=== PATIENT | male | born 1965 | race Caucasian/White ===

== ENCOUNTER 2020-05-07 17:18 | Emergency (ER) | payer OTHER, SELFPAY ==
--- NOTE | ~2020-05-07 | XR_ITS ---
EXAMINATION: XR lumbar spine 2-3V DATE: 05/07/2020 18:06 INDICATION: Back pain TECHNIQUE: Anteroposterior and lateral views of the lumbar spine, and cone-down lateral view of the l umbosacral junction were obtained. COMPARISON: None. FINDINGS: There is no fracture, dislocation, or subluxation. The vertebral body heights and alignment are normal. There is mild loss of intervertebral disc space height at L5-S1. Small degenerative oste ophytes project from the anterior endplates of multiple vertebral bodies. There is mild facet osteoar thritis of the lower lumbar spine. A moderate volume of colonic stool is present. Calcified atherosc lerosis is noted. IMPRESSION: 1. Mild lumbar spondylosis without acute findings. Reviewed, dictated and finalized at location A. S CUTTING MACHINE FEEDER
[2020-05-07 17:33] VITALS: BP 163/79; PULSE 89; RESP 18; TEMP 36.4; O2SAT 100
--- NOTE | 2020-05-07 17:58 | ED.GENADULT ---
HPI - General Adult General Chief complaint: Unspecified Stated complaint: Pain from [place] to Toes Time Seen by Provider: 05/07/20 17:24 Source: patient and family Mode of arrival: ambulatory Limitations: no limitations History of Present Illness HPI narrative: Patient is a 55-year-old male who presents to emergency department for evaluation of pain to the right buttock that radiates down into the foot patient denies injury or trauma patient notes that he has had this pain for 3 weeks has seen primary care for it and has been taking naproxen with minimal to no improvement pain is worse with activity and movement patient did some lifting and moving over the weekend and prolonged sitting. Related Data Home Medications Medication Instructions Recorded Confirmed tczolyniyboj-bux-nlupu acid-vit 1 tablet PO DAILY 04/20/20 K-lycop 400 mcg-20 mcg-370 mcg tablet Allergies Allergy/AdvReac Type Severity Reaction Status Date / Time Penicillins Allergy Mild Unknown Verified 05/07/20 18:03 Review of Systems Review of Systems: All systems reviewed & are unremarkable except as noted in HPI and below PMFSH Past Medical History Medical History Alcoholism Chicken pox Mumps Pneumonia Family History Family History Father Stomach cancer Mother Heart problem Social History Social History Social History: Patient drinks one pot of coffee per day Smoking packs per day: 0.5 Smoking cigarettes per day: 10.0 Smoking status: Current every day smoker Alcohol intake: former Substance use: never Substance use type: does not use Exam Narrative: Exam Narrative: GENERAL: Well-appearing, well-nourished, and in no acute distress. HEAD: Normocephalic, atraumatic. EYES: PERRLA and EOMI. ENT: Nares clear, no rhinorrhea or epistaxis. Mucous membranes moist. CHEST: Clear to auscultation. No respiratory distress. No wheezes rales or rhonchi HEART: Regular rate and rhythm. No murmur heard. EXTREMITIES: Normal range of motion. No edema. Tenderness of the right SI joint no deformities noted. No midline tenderness of the lumbar spine SKIN: Warm, dry, no rash. NEURO: No focal deficits. Alert and oriented x3. Cranial nerves II through XII grossly intact. Normal speech and gait PSYCH: Normal mood and affect. Course Course Emergency Course: Patient evaluated in the emergency department given medications no high risk change in the x-ray will be discharged home for plan follow-up on an outpatient basis patient's medications will be changed due to no improvement with his current medications Vital Signs Vital signs: Vital Signs Temperature 97.5 F L 05/07/20 17:33 Pulse Rate 89 05/07/20 17:33 Respiratory Rate 18 05/07/20 17:33 Blood Pressure 163/79 H 05/07/20 17:33 Pulse Oximetry 100 05/07/20 17:33 Temperature 97.5 F L 05/07/20 17:33 Pulse Rate 89 05/07/20 17:33 Respiratory Rate 18 05/07/20 17:33 Blood Pressure 163/79 H 05/07/20 17:33 Pulse Oximetry 100 05/07/20 17:33 Medical Decision Making MDM Narrative Medical decision making narrative: Patients pain is positional in nature and localized to back without signs of cord compression or cauda equina based on neurological exam, skeletal exam and history. No fever or other significant factors to suggest osteomyelitis or spinal epidural abscess. No symptoms or signs to suggest pain is referred from abdominal or / cardiopulmonary sources. No pulsatile masses noted on exam. Patient ambulates with steady gait and is stable for outpatient management given case findings. Vital Signs Vital Signs: Vital Signs Temperature 97.5 F L 05/07/20 17:33 Pulse Rate 89 05/07/20 17:33 Respiratory Rate 18 05/07/20 17:33 Blood Pressure 163/79 H 05/07/20 17:33 Pulse Oximetry 1
[2020-05-07] MEDS: HYDROcodone/acetaminophen (*CRX) 5-325 MG TABLET 1 TAB PO (18:15)
[2020-05-07] MEDS: diazePAM (*CRX) 5 MG TABLET PO (18:15)
[2020-05-07] MEDS: KETOROLAC (*BKC) 60 MG/2 ML VIAL IM (18:15)
[2020-05-07] MEDS: LIDOCAINE 5% PATCH 1 PATCH TRANSDERM (18:19)
== END 2020-05-07 19:02 | disposition home or self-care (01) ==
PROVIDERS: Emergency Provider Emergency Medicine; PCP Emergency Medicine
DX: M54.41 Lumbago with sciatica, right side (principal)
CPT/HCPCS: 72100; 96372; 99283; A9270; J1885

== ENCOUNTER → 2020-05-14 13:37 | Outpatient (CLI) | payer OTHER, SELFPAY ==
--- NOTE | ~2020-05-14 | MR_ITS ---
EXAMINATION: MR lumbar spine wo/w con EXAM DATE: 05/14/2020 15:56 INDICATION: M54.5 - Low back pain low back pain. Right leg radiculopathy, difficulty walking. TECHNIQUE: Multi-sequential, multiplanar MR images of the lumbar spine were obtained without contrast . Sagittal T1, T2, T2 fat saturation images. Axial T2 weighted images. Axial T1 weighted sequence. Patient was then injected with 15 mL Multihance intravenous contrast and reimaged. Postcontrast axi al and sagittal T1-weighted fat saturation sequences were obtained. FINDINGS: There is mild thoracal dextrocurvature, thoracic levocurvature. There is 2 mm anterolisthes is L4 on L5 with mild to moderate loss of this disc height and at L5-S1. The conus medullaris termina ana at the T12-L1 level and has normal signal intensity and morphology. There is a small right central disc extrusion at L5-S1, with some surrounding enhancement indicating likelihood of acute inflammation, could have recently been extruded. This has migrated inferiorly to the mid S1 level, and is causing mass effect on the traversing right S1 nerve root in the lateral rec ess. Uncertain whether or not the inflammation (which could be treated with anti-inflammatories) and/ or the mass effect could be causing patient's acute symptoms. No other areas of abnormal enhancement. Paraspinal soft tissue is unremarkable. Level by level evaluation: T12-L1: Disc does not extend beyond the endplate margin. Facet arthropathy: None. Neural foraminal stenosis: No stenosis. Central canal stenosis: No stenosis. L1-L2: Disc does not extend beyond the endplate margin. Facet arthropathy: Mild bilateral. Neural foraminal stenosis: No stenosis. Central canal stenosis: No stenosis. L2-L3: There is a mild diffuse disc bulge. Facet arthropathy: Mild. Neural foraminal stenosis: Mild bilateral. Central canal stenosis: Mild. L3-L4: There is a mild diffuse disc bulge. Facet arthropathy: Mild to moderate bilateral. Neural foraminal stenosis: Mild to moderate left, mild right. Central canal stenosis: Mild. L4-L5: There is a moderate diffuse disc bulge. Facet arthropathy: Severe left, moderate right. Neural foraminal stenosis: Moderate to severe left, moderate right. Central canal stenosis: Moderate to severe. L5-S1: There is a mild to moderate diffuse disc bulge, superimposed right central extrusion described above. Facet arthropathy: Mild to moderate right, mild left. Neural foraminal stenosis: Moderate left, mild to moderate right. Central canal stenosis: Mild to moderate (particularly right lateral recess). IMPRESSION: L5-S1 right central extrusion, inferior migration could be acute given surrounding inflam mation. Causing mass effect on traversing S1 nerve root. Other chronic spondylosis as above. Reviewed, dictated and finalized at location A. GE MANAGEMENT ANALYST IMPRESSION: L5-S1 right central extrusion, inferior migration could be acute gi nat surrounding inflammation. Causing mass effect on traversing S1 nerve root. Other chronic spondylosis as above.
[2020-05-14 15:39] LABS: Estimated Glomerular Filt Rate > 60
== END ==
PROVIDERS: PCP Emergency Medicine; Visit Provider Emergency Medicine
DX: M54.30 Sciatica, unspecified side (principal); R29.898 Other symptoms and signs involving the musculoskeletal system; M51.26 Other intervertebral disc displacement, lumbar region
CPT/HCPCS: 72158; A9577

== ENCOUNTER 2022-08-05 08:43 | Day surgery (SDC) | payer OTHER, SELFPAY ==
[2022-07-22 11:54] VITALS: BMI 22.9
[2022-08-05 12:35] VITALS: BMI 22.1
--- NOTE | 2022-08-05 12:35 | SUR.PREOP ---
PT AND SPOUSE NOTIFIED OF DOCTOR DELAY OF APPROX 1 HOUR
--- NOTE | 2022-08-05 12:44 | SUR.PREOP ---
PT AND SPOUSE NOTIFIED OF DOCTOR DELAY OF APPROX 1 HOUR
[2022-08-05 12:50] VITALS: BP 116/79; PULSE 77; RESP 18; TEMP 37.2; O2SAT 100
[2022-08-05] MEDS: LACTATED RINGERS 1,000 ML 150 ML IV CONT (12:50)
--- NOTE | 2022-08-05 14:32 | WPDANESEPPF ---
Anes - Initial Pre Proc Eval Procedure: Operation Date: 08/05/22 13:30 Proposed Procedures p Diagnostic Colonoscopy - Silvano Delcid MD Date/Time: 08/05/22 14:32 Surgeon: Silvano Delcid MD Pre Op Diagnosis: Hematochezia Patient Data Age: 57 Gender: M Height: 1.88 m Weight: 78.3 kg Allergies Allergy/AdvReac Type Severity Reaction Status Date / Time Penicillins Allergy Mild Hives Verified 08/05/22 12:32 Home Medications Medication Instructions Recorded Confirmed Type dktchldnqfcq-pxa-uvsng acid-vit 1 tablet PO DAILY 04/20/20 08/05/22 History K-lycop 400 mcg-20 mcg-370 mcg tablet (One-A-Day Men's 50 Plus) Patient hx anesthesia problems: none Family hx anesthesia problems: none Results Review: All pre-operative results and documents have been reviewed as part of the pre-operative evaluation. [facility] Past Medical History Medical History Alcoholism Chicken pox Hematochezia Mumps Pneumonia Tenesmus (rectal) Tobacco abuse Family History Family History Father Stomach cancer Mother Heart problem Social History Social History Social History: Patient drinks one pot of coffee per day Smoking packs per day: 1 Smoking cigarettes per day: 20.0 Years smoked: 40 Smoking pack-years: 40.00 Smoking status: Current every day smoker Tobacco type: cigarettes Alcohol intake: never Substance use: never Substance use type: does not use Living arrangements: with family Occupation/Education: occupation Spiritual care concerns: No Anes - Eval Final PreProcedure Day of Procedure 08/05/22 14:32 Patient weight: normal Heart: regular rate and rhythm Lungs: decreased breath sounds Airway: Mallampati scale class II Neurological: alert and oriented Last oral intake: >/= 8 hours ASA classification: III Emergent: no Anesthetic plan: proceed Anesthesia type and monitoring: general GIVS and standard monitoring Results Review: All pre-operative results and documents have been reviewed as part of the pre-operative evaluation. Informed Consent: The patient's anesthetic plan and its attendant risks and benefits were discussed with the patient/family/POA. Questions were solicited and answers provided to the satisfaction of the patient/family/POA.
--- NOTE | 2022-08-05 15:08 | PM.HPGS ---
History of Present Illness History of Present Illness Consent: Risks, benefits, and alternatives have been discussed and questions answered. Patient agrees to proceed with procedure. Chief complaint: Hematochezia Narrative: Griffin Gardner is a 57 year old male with blood in stools about 1 month ago, never had colonoscopy only he has done cologuard Review of Systems Constitutional: Constitutional: Denies headache(s) and Denies weakness Eyes: Eyes: Denies blurry vision ENT: Reports Normal hearing present, Denies headache(s) and Denies neck pain Cardiovascular: Cardiovascular: Denies chest pain and Denies dyspnea Respiratory: Respiratory: Denies dyspnea Gastrointestinal: Gastrointestinal: Reports no additional gastrointestinal complaints Genitourinary: Genitourinary: Denies dysuria Musculoskeletal: Musculoskeletal: Denies neck pain Integumentary/Breasts: Skin/Breast: Denies dry skin Neurologic: Reports Normal hearing present, Denies headache(s) and Denies weakness Psychiatric: Psychiatric: Denies anxiety Endocrine: Endocrine: Denies change in body appearance Hematologic/Lymphatic: Hematologic/Lymphatic: Denies easy bleeding Allergic/Immunologic: Allergic/Immunologic: Denies urticaria PMFSH Past Medical History Medical History Alcoholism Chicken pox Hematochezia Mumps Pneumonia Tenesmus (rectal) Tobacco abuse Family History Family History Father Stomach cancer Mother Heart problem Social History Social History Social History: Patient drinks one pot of coffee per day Smoking packs per day: 1 Smoking cigarettes per day: 20.0 Years smoked: 40 Smoking pack-years: 40.00 Smoking status: Current every day smoker Tobacco type: cigarettes Alcohol intake: never Substance use: never Substance use type: does not use Living arrangements: with family Occupation/Education: occupation Spiritual care concerns: No Meds Home Medications and Allergies Home Medications Medication Instructions Recorded Confirmed Type paijukrywxsl-okn-denow acid-vit 1 tablet PO DAILY 04/20/20 08/05/22 History K-lycop 400 mcg-20 mcg-370 mcg tablet (One-A-Day Men's 50 Plus) Allergies Allergy/AdvReac Type Severity Reaction Status Date / Time Penicillins Allergy Mild Hives Verified 08/05/22 12:32 Vital Signs Vital Signs - 24 hr 08/05/22 12:50 Temperature 99 F Pulse Rate 77 Respiratory Rate 18 Blood Pressure 116/79 Pulse Oximetry 100 Oxygen Delivery Room Air Exam Const: General: comfortable and no acute distress HENMT: Face/Nose/Sinus: Normal nares present Eyes: General: appearance normal, both eyes and all related structures Neck: Neck: no JVD Resp: Auscultation: clear to auscultation bilaterally Cardio: Rate: regular rate Rhythm: regular rhythm GI: Inspection: non-distended GI Palp: Yes Soft to palpation Skin: General skin exam: normal color Neuro: General: gait normal Speech: normal speech Extrem: General: normal to inspection Psych: Mental Status: mental status grossly normal Assessment and Plan Assessment and plan (1) Hematochezia: Code(s): K92.1 - Melena Status: Acute Assessment and Plan: colonoscopy
[2022-08-05 15:38] VITALS: BP 94/64; PULSE 69; RESP 16; O2SAT 98
--- NOTE | 2022-08-05 15:43 | WPDANESPN ---
Anes - Prog Note Post-Op Date/Time: 08/05/22 15:43 Cardiovascular status: normal Respiratory status: normal Airway patency: baseline Mental status: baseline Post-Op hydration status: normal Vital Signs: Last Vital Signs Temp 37.2 C 08/05/22 12:50 Pulse 77 08/05/22 12:50 Resp 18 08/05/22 12:50 BP 116/79 08/05/22 12:50 Pulse Ox 100 08/05/22 12:50 O2 Del Method Room Air 08/05/22 12:50 Pain Score (VAS): 0 I/O: Intake & Output 08/04/22 08/05/22 08/05/22 23:59 07:59 15:59 Intake Total 800 Balance 800 Patient Feedback: Patient satisfied with anesthetic care.
[2022-08-05 15:48] VITALS: BP 100/67; PULSE 80; RESP 16; O2SAT 100
[2022-08-05 15:58] VITALS: BP 128/99; PULSE 74; RESP 16; O2SAT 100
--- NOTE | 2022-08-05 16:04 | SUR.PHASEII ---
PT AWAKE AND ALERT. EATING AND DRINKING. DENIES PAIN OR NAUSEA
== END 2022-08-05 16:25 | disposition home or self-care (01) ==
PROVIDERS: PCP Emergency Medicine; Visit Provider Internal Medicine Gastroenterology
PROC: 0DJD8ZZ Inspection of Lower Intestinal Tract, Via Natural or Artificial Opening Endoscopic (ICD-10-PCS; CPT 45378; principal; 2022-08-05 13:30)
DX: K92.1 Melena (principal)
CPT/HCPCS: 45385

== ENCOUNTER 2022-08-05 09:00 | Outpatient (NON) | payer OTHER, SELFPAY | END 2022-08-05 09:01 | disposition home or self-care (01) | LOC: ANHLAB 08-06 09:49 | PROVIDERS: PCP Emergency Medicine; Visit Provider Internal Medicine Gastroenterology | DX: Z12.11 Encounter for screening for malignant neoplasm of colon (principal) | CPT/HCPCS: 88305 ==